=== PATIENT | female | born 1950 | race Caucasian/White ===

== ENCOUNTER 2019-05-07 12:50 | Emergency (ER) | payer MEDICARE ==
[~2019-05-07] VITALS: Ht 175.3 cm; Wt 80.2 kg
[2019-05-07] MEDS ORDERED: GLIM4TAB5 PO (13:01)
[2019-05-07] MEDS ORDERED: METF-877 PO (13:01)
[2019-05-07] MEDS ORDERED: PRAV20TA2 PO (13:01)
[2019-05-07] MEDS ORDERED: LISI40TA PO (13:01)
--- NOTE | 2019-05-07 15:53 | REP ---
The right femur four views : There is no fracture or dislocation. Mineralization and joint spaces are normal. There are no calcifications or foreign bodies. Impression: Negative right femur. If symptoms persist or worsen, consider MRI . Electronically Signed by Kevyn Tabares MD 05/07/2019 03:44 P
[2019-05-07] MEDS ORDERED: ACETAMINOPHEN 325 MG TAB PO ONE (16:15)
[2019-05-07] MEDS ORDERED: KETOROLAC 60 MG/2 ML VIAL (J1885) IM ONE (16:15)
[2019-05-07] MEDS ORDERED: KETO10TAB PO ×2 (17:32→18:45)
[2019-05-07 17:37] VITALS: BP 174/89
== END 2019-05-07 17:47 | disposition home or self-care (01) ==
LOC: M ED 12:50
DX: S76.111A Strain of right quadriceps muscle, fascia and tendon, initial encounter (principal); X58.XXXA Exposure to other specified factors, initial encounter; Y92.9 Unspecified place or not applicable; Y93.9 Activity, unspecified; Y99.9 Unspecified external cause status; E11.9 Type 2 diabetes mellitus without complications; I10 Essential (primary) hypertension; E78.5 Hyperlipidemia, unspecified; Z79.84 Long term (current) use of oral hypoglycemic drugs; Z79.899 Other long term (current) drug therapy
CPT/HCPCS: 73552; 80047; 96372; 99283; J1885